=== PATIENT | female | born 1950 | race Caucasian/White ===

== ENCOUNTER 2018-06-21 09:15 | Observation (INO) ==
[2018-06-21] MEDS ORDERED: Morphine Inj 4 MG/ML Vial IV.PUSH ONE (10:00)
[2018-06-21 10:14] LABS: Baso % (Auto) 0.1 % (0.0-2.0); Eos % (Auto) 0.2 % (0.0-4.0); Hematocrit 37.6 % (35.0-46.0); Hemoglobin 13.2 gm/dL (11.6-15.3); Lymph # (Auto) 1.5 th/mm3 (1.0-4.8); Lymph % (Auto) 15.7 % (9.0-44.0); Mean Corpuscular HGB Conc 35.1 % (32.0-36.0); Mean Corpuscular Volume 91.3 fL (80.0-100.0); Mono # (Auto) 0.7 th/mm3 (0.0-0.9); Mono % (Auto) 7.6 % (0.0-8.0); Neut # (Auto) 7.6 th/mm3 (1.8-7.7); Neut % (Auto) 76.4 % (16.0-70.0); Platelet Count 305 th/mm3 (150-450); Red Blood Count 4.11 mil/mm3 (4.00-5.30); Red Cell Distribution Width 12.7 % (11.6-17.2); White Blood Count 9.8 th/mm3 (4.0-11.0)
--- NOTE | 2018-06-21 10:23 | XR ---
EXAM DATE: 06/21/2018 10:21 AM EST AGE/SEX: 67 years / Female INDICATIONS: Chest pain, short of breath. CLINICAL DATA: This is the patient's initial encounter. Patient reports that signs and symptoms have been present for 3 days and indicates a pain score of 8/10. MEDICAL/SURGICAL HISTORY: None. None. COMPARISON: No prior exams available for comparison. FINDINGS: The lungs are clear without infiltrate, nodule, or mass. There is no appreciable pleural effusion for technique. Heart and mediastinum are unremarkable. CONCLUSION: No acute cardiopulmonary disease. Electronically signed by: Víctor Mathias MD 06/21/2018 10:22 AM EST
[2018-06-21 10:28] LABS: Chloride 107 meq/L (98-107); Potassium 3.4 meq/L (3.5-5.1); Sodium 142 meq/L (136-145)
[2018-06-21 10:31] LABS: Activated Partial Thrombo Time 23.7 sec (23.4-31.7); Calcium 9.2 mg/dL (8.5-10.1); INR 0.9 Ratio; Prothrombin Time 9.3 sec (9.8-11.6)
[2018-06-21 10:32] LABS: Albumin 3.8 g/dL (3.4-5.0); Anion Gap 10 meq/L (5-15); Blood Urea Nitrogen 16 mg/dL (7-18); Carbon Dioxide 25.1 meq/L (21.0-32.0); Glucose,Random 97 mg/dL (74-106); Lipase 395 U/L (73-393)
[2018-06-21 10:35] LABS: Alanine Aminotransferase 23 U/L (10-53); Aspartate Aminotransferase 11 U/L (15-37); Glomerular Filtration Rate Greater Than 89 mL/min (>89)
[2018-06-21 10:36] LABS: Total Protein 7.3 g/dL (6.4-8.2)
[2018-06-21 10:38] LABS: Alkaline Phosphatase 85 U/L (45-117)
[2018-06-21 10:39] LABS: Creatine Kinase 53 U/L (26-192)
[2018-06-21] MEDS ORDERED: Famotidine PF Inj 20 MG/2 ML Vial IV.PUSH ONE (11:27)
[2018-06-21] MEDS ORDERED: Aluminum/Magnesium/Simethacone Susp 30 ML UDC PO ONE (11:27)
--- NOTE | 2018-06-21 11:28 | ED ---
HPI General Chief complaint: Chest Pain Stated complaint: high bp, indigestion x 3 days Time Seen by Provider: 06/21/18 09:33 Source: patient Mode of arrival: ambulatory Limitations: no limitations History of Present Illness HPI narrative: Patient is a 67-year-old female who comes in complaining of chest pain. She says that the pain started in her epigastric area 3 days ago and is been coming and going. She says it has moved up into her chest and feels like a stabbing pain. She says she has some pain rating up the left side of her neck. She also has pain that radiates to both shoulder blades. She denies nausea or vomiting. She denies fever chills. She denies cough or cold symptoms. She says she has never had symptoms like this before. She tried taking some Gas-X when it first started, but this did not help. He says that her father had a heart attack at 67, which makes her nervous. Severity is mild to moderate. Related Data Home Medications Medication Instructions Recorded Confirmed No Known Home Medications 06/21/18 06/21/18 Allergies Allergy/AdvReac Type Severity Reaction Status Date / Time diatrizoate meglumine Allergy Severe throat Verified 06/21/18 11:16 swelling, hives gadobenic acid Allergy Severe throat Verified 06/21/18 11:16 swelling, hives gadodiamide Allergy Severe throat Verified 06/21/18 11:16 swelling, hives gadoteridol Allergy Severe throat Verified 06/21/18 11:16 swelling, hives iodixanol Allergy Severe throat Verified 06/21/18 11:16 swelling, hives iohexol Allergy Severe throat Verified 06/21/18 11:16 swelling, hives penicillin G Allergy Severe hives, Verified 06/21/18 11:16 throat swells amoxicillin Allergy Intermediate hives Verified 06/21/18 11:16 Sulfa (Sulfonamide Allergy Unknown Hives Verified 06/21/18 11:16 Antibiotics) Review of Systems ROS: all other systems reviewed are negative Constitutional Denies chills and Denies fever(s) ENT Denies dizziness Cardiovascular Reports chest pain Respiratory Denies cough and Denies dyspnea Gastrointestinal Denies vomiting Musculoskeletal Denies myalgias and Denies arthralgias Integumentary/Breasts Denies sores and Denies wounds Neurologic Denies focal weakness and Denies numbness PMFSH Medical History Medical History History of anxiety (Acute) History of herniated intervertebral disc (Acute) History of kidney stones (Acute) Surgical History Surgical History History of tubal ligation (Acute) Social History Social History Substance History: No History of Abuse Smoking Status: Former smoker How Often Do You Have a Drink Containing Alcohol: Never Recent Travel in [facility] within the Last 8 Weeks: No Recent Out of Country Travel within the Last 8 Weeks: No Immunization History Tetanus Immunization: >5 Years Exam Narrative Exam Narrative: GENERAL: Awake and alert, in no acute distress. SKIN: Focused skin assessment warm/dry. No wounds or signs of infection. HEAD: Atraumatic. Normocephalic. EYES: Pupils equal and round. No scleral icterus. ENT: Mucous membranes pink and moist. NECK: Trachea midline. No JVD. CARDIOVASCULAR: Regular rate and rhythm. No murmur appreciated. RESPIRATORY: No accessory muscle use. Clear to auscultation. Breath sounds equal bilaterally. GASTROINTESTINAL: Abdomen soft, nondistended. Mild tenderness to palpation of the epigastric area. No rebound or guarding. MUSCULOSKELETAL: No obvious deformities. No clubbing. No cyanosis. No edema. NEUROLOGICAL: Awake and alert. No obvious cranial nerve deficits. Motor grossly within normal limits. Normal speech. PSYCHIATRIC: Appropriate mood and affect; insight and judgment normal. Course Initial Documented Vital Signs Temperature 98.6 F 06/21/18 09:30 Pulse Rate 77 06/21/18 09:30 Respiratory Rate 16 06/21/18 09:30 Blood Pressure 150/76 H 06/21/18 09:30 Pulse Oximetry 97 06/21/18 09:30 Last Documented Vital Signs Temperature 98.6 F 06/21/18 09:30 Pulse Rate 63 06/21/18 10:20 Respiratory Rate 16 06/21/18 10:20 Blood Pressure 137/69 06/21/18 10:20 Pulse Oximetry 97 06/21/18 10:20 Medical Decision Making MDM Narrative Medical decision making narrative: Patient is a 67-year-old female who comes in complaining of chest pain. Exam shows mild tenderness to palpation of the epigastric area. IV established, labs sent. Labs show no acute abnormalities, other than slight elevation of lipase to 395, troponin is negative. Patient given pain medicine. Given GI cocktail. Based on history and risk factors, I believe patient would benefit from a ACS rule out. She will be placed in observation for further management. Medical Screen Exam Complete: Yes Emergency Medical Condition: Yes Differential Diagnosis Differential Diagnosis: ACS versus pancreatitis versus cholecystitis versus NSTEMI versus STEMI Medical Records Medical records reviewed: Yes I reviewed the patient's medical records. Lab Data Lab results reviewed: Yes I reviewed the patient's lab results. Result diagrams: 06/21/18 10:02 06/21/18 10:02 Lab Results 06/21/18 06/21/18 06/21/18 Range/Units 10:02 10:02 10:02 CBC w Diff Auto diff final WBC 9.8 (4.0-11.0) th/mm3 RBC 4.11 (4.00-5.30) mil/mm3 Hgb 13.2 (11.6-15.3) gm/dL Hct 37.6 (35.0-46.0) % MCV 91.3 (80.0-100.0) fL MCH 32.0 (27.0-34.0) pg MCHC 35.1 (32.0-36.0) % RDW 12.7 (11.6-17.2) % Plt Count 305 (150-450) th/mm3 MPV 10.0 (7.0-11.0) fL Neut % (Auto) 76.4 H (16.0-70.0) % Lymph % (Auto) 15.7 (9.0-44.0) % [place] % (Auto) 7.6 (0.0-8.0) % Eos % (Auto) 0.2 (0.0-4.0) % Baso % (Auto) 0.1 (0.0-2.0) % Neut # (Auto) 7.6 (1.8-7.7) th/mm3 Lymph # (Auto) 1.5 (1.0-4.8) th/mm3 [place] # (Auto) 0.7 (0.0-0.9) th/mm3 Eos # (Auto) 0.0 (0.0-0.4) th/mm3 Baso # (Auto) 0.0 (0.0-0.2) th/mm3 WBC Differential . Differential Comment . PT 9.3 L (9.8-11.6) sec INR 0.9 Ratio APTT 23.7 (23.4-31.7) sec Sodium 142 (136-145) meq/L Potassium 3.4 L (3.5-5.1) meq/L Chloride 107 (98-107) meq/L Carbon Dioxide 25.1 (21.0-32.0) meq/L Anion Gap 10 (5-15) meq/L BUN 16 (7-18) mg/dL Creatinine 0.61 (0.50-1.00) mg/dL Estimated GFR Greater than 89 (>89) mL/min Random Glucose 97 (74-106) mg/dL Calcium 9.2 (8.5-10.1) mg/dL Total Bilirubin 0.5 (0.2-1.0) mg/dL Direct Bilirubin 0.1 (0.0-0.2) mg/dL Indirect Bilirubin 0.4 (0.0-0.8) mg/dL AST 11 L (15-37) U/L ALT 23 (10-53) U/L Alkaline Phosphatase 85 (45-117) U/L Total Creatine Kinase 53 (26-192) U/L Troponin I Less than 0.02 L (0.02-0.05) ng/mL Total Protein 7.3 (6.4-8.2) g/dL Albumin 3.8 (3.4-5.0) g/dL Lipase 395 H (73-393) U/L Imaging Data Radiologist's impression: Chest X-Ray 06/21/18 10:00 CONCLUSION: No acute cardiopulmonary disease. ECG Data EKG Prior to Arrival: No Attestation: I personally reviewed and interpreted this ECG as follows: Interpretation: ECG shows normal sinus rhythm at a rate of 77, incomplete right bundle branch block, no ST elevation or depression Discharge Plan Discharge Disposition Patient Disposition: 30 Still Patient Discharge Condition Condition: Stable Discharge Details Diagnosis: Chest pain Physicians Team ED Provider: Louise Castillo Primary Care Provider: Koffi Leblanc Attending Provider: Elizabeth Sevilla Status ED Status: Admitted Observation Patient
--- NOTE | 2018-06-21 11:40 | P.HP ---
History of Present Illness Primary Care Physician: Koffi Leblanc MD Chief Complaint: Chest pain History of Present Illness: This is a pleasant 67-year-old female patient with no known medical history presented to the ED with complaints of chest pain. Patient states that she first noticed the chest discomfort roughly 3 days ago, she states that she felt like it was possibly gas, she took a Gas-X which helped relieve the pain some. She states that the pain worsens when she eats. Over the course of the past 2 days the pain has just been worsening, initially started in her mid epigastric area, was sharp in nature and has extended up her neck and left side of her chest. Pain is rated a 6 out of 10 at its worst on pain scale and is constant in nature, waxing and waning severity. Denies any associated vomiting, sweating or shortness of breath but does admit to some nausea with the pain. Has had a previous cardiac treadmill stress test roughly 10 years ago which was reportedly negative. She does not take any prescribed medications at home. She does admit to a smoking history, states she smoked roughly 1 pack/day for 15 years, has quit for many years now. Father has a significant history of [place] x2 with his first heart attack being at the age of 63. She does have hyperlipidemia but unable to tolerate statins, she has had some improvement in her numbers with lifestyle changes and supplements, PCP is following. - Diagnosis (1) Chest pain Review of Systems All other systems reviewed negative except as stated in HPI PMFSH - History History Provided By: Patient - Medical History Medical History: Medical History (Last Reviewed 06/21/18 @ 11:38 by Louise Montana) History of anxiety History of herniated intervertebral disc History of kidney stones - Surgical History Surgical History: Surgical History (Last Reviewed 06/21/18 @ 11:38 by Louise Montana) History of tubal ligation - Family History Family History: Family History (Last Updated 06/21/18 @ 12:02 by Louise Montana) Other Cardiovascular disease - Social History I have reviewed the patient's Social History: Yes - Tobacco History Smoking Status: Former smoker - Alcohol History How Often Do You Have a Drink Containing Alcohol: Never - Substance Use History Substance History: No History of Abuse - Travel History Recent Travel in the [place] Within the Last 8 Weeks: No Recent Travel Out of the Country Within the Last 8 Weeks: No - Immunization History Tetanus Immunization: >5 Years Medications and Allergies Active Medications: Active Medications Sodium Chloride (Ns Flush) 2 ml IV.FLUSH UNSCH PRN PRN Reason: FLUSH AFTER USING IV ACCESS Allergies Allergy/AdvReac Type Severity Reaction Status Date / Time diatrizoate meglumine Allergy Severe throat Verified 06/21/18 11:16 swelling, hives gadobenic acid Allergy Severe throat Verified 06/21/18 11:16 swelling, hives gadodiamide Allergy Severe throat Verified 06/21/18 11:16 swelling, hives gadoteridol Allergy Severe throat Verified 06/21/18 11:16 swelling, hives iodixanol Allergy Severe throat Verified 06/21/18 11:16 swelling, hives iohexol Allergy Severe throat Verified 06/21/18 11:16 swelling, hives penicillin G Allergy Severe hives, Verified 06/21/18 11:16 throat swells amoxicillin Allergy Intermediate hives Verified 06/21/18 11:16 Sulfa (Sulfonamide Allergy Unknown Hives Verified 06/21/18 11:16 Antibiotics) Home Medications Medication Instructions Recorded Confirmed Type No Known Home Medications 06/21/18 06/21/18 History Exam Vital signs: Vital Signs 06/21/18 09:30 06/21/18 09:46 06/21/18 10:00 Temperature 98.6 F Pulse Rate 77 63 Respiratory Rate 16 Blood Pressure 150/76 H 142/75 H Pulse Oximetry 97 97 06/21/18 10:20 Temperature Pulse Rate 63 Respiratory Rate 16 Blood Pressure 137/69 Pulse Oximetry 97 Intake & Output 06/20/18 06/21/18 06/21/18 18:59 06:59 18:59 Weight 63 kg Narrative: GENERAL: Well-developed, well-nourished patient in [facility]. SKIN: Warm and dry. No rash. HEAD: Normocephalic. Atraumatic. EYES: Pupils equal and round. No scleral icterus. No injection or drainage. ENT: No nasal bleeding or discharge. Mucous membranes pink and moist. NECK: Supple. Trachea midline. CARDIOVASCULAR: Regular rate and rhythm. S1, S2 noted. No murmur appreciated. No chest pain to palpation. RESPIRATORY: No accessory muscle use. Clear to auscultation. Breath sounds equal bilaterally. GASTROINTESTINAL: Abdomen soft, non-tender, nondistended. Normoactive bowel sounds x4. MUSCULOSKELETAL: No obvious deformities. Extremities without clubbing, cyanosis , or edema. NEUROLOGICAL: Awake and alert. No obvious cranial nerve deficits. Motor grossly within normal limits. 5/5 muscle strength in bilateral upper and lower extremities. Normal speech. PSYCHIATRIC: Appropriate mood and affect; insight and judgment normal. Results - Labs CBC & Chem 7: 06/21/18 10:02 06/21/18 10:02 Labs: Laboratory Results - last 24 hr 06/21/18 06/21/18 06/21/18 10:02 10:02 10:02 CBC w Diff Auto diff final WBC 9.8 RBC 4.11 Hgb 13.2 Hct 37.6 MCV 91.3 MCH 32.0 MCHC 35.1 RDW 12.7 Plt Count 305 MPV 10.0 Neut % (Auto) 76.4 H Lymph % (Auto) 15.7 [place] % (Auto) 7.6 Eos % (Auto) 0.2 Baso % (Auto) 0.1 Neut # (Auto) 7.6 Lymph # (Auto) 1.5 [place] # (Auto) 0.7 Eos # (Auto) 0.0 Baso # (Auto) 0.0 WBC Differential . Differential Comment . PT 9.3 L INR 0.9 APTT 23.7 Sodium 142 Potassium 3.4 L Chloride 107 Carbon Dioxide 25.1 Anion Gap 10 BUN 16 Creatinine 0.61 Estimated GFR Greater than 89 Random Glucose 97 Calcium 9.2 Total Bilirubin 0.5 Direct Bilirubin 0.1 Indirect Bilirubin 0.4 AST 11 L ALT 23 Alkaline Phosphatase 85 Total Creatine Kinase 53 Troponin I Less than 0.02 L Total Protein 7.3 Albumin 3.8 Lipase 395 H - Imaging Impressions Chest X-Ray 06/21/18 10:00 CONCLUSION: No acute cardiopulmonary disease. Caprini VTE Risk Assessment Caprini VTE Risk Assessment: Moderate/High Risk (score >= 2) Caprini Risk Assessment Model: Point Value = 1 Point Value = 2 Point Value = 3 Point Value = 5 Age 41-60 Minor surgery BMI > 25 kg/m2 Swollen legs Varicose veins or History of unexplained or recurrent spontaneous Oral contraceptives or hormone replacement Sepsis (< 1 month) Serious lung disease, including pneumonia (< 1 month) Abnormal pulmonary function Acute myocardial infarction Congestive heart failure (< 1 month) History of inflammatory bowel disease Medical patient at bed rest Age 61-74 Arthroscopic surgery Major open surgery (> 45 min) Laparoscopic surgery (> 45 min) Malignancy Confined to bed (> 72 hours) Immobilizing plaster cast Central venous access Age >= 75 History of VTE Family history of VTE Factor V Leiden Prothrombin [id number] Lupus anticoagulant Anticardiolipin antibodies Elevated serum homocysteine Heparin-induced thrombocytopenia Other congenital or acquired thrombophilia Stroke (< 1 month) Elective arthroplasty Hip, pelvis, or leg fracture Acute spinal cord injury (< 1 month) Prophylaxis Regimen: Total Risk Factor Score Risk Level Prophylaxis Regimen 0-1 Low Early ambulation 2 Moderate Order ONE of the following: *Sequential Compression Device (SCD) *Heparin 5000 units SQ BID 3-4 Higher Order ONE of the following medications: *Heparin 5000 units SQ TID *Enoxaparin/Lovenox 40 mg SQ daily (WT < 150 kg, CrCl > 30 mL/min) *Enoxaparin/Lovenox 30 mg SQ daily (WT < 150 kg, CrCl > 10-29 mL/min) *Enoxaparin/Lovenox 30 mg SQ BID (WT < 150 kg, CrCl > 30 mL/min) AND/OR *Sequential Compression Device (SCD) 5 or more Highest Order ONE of the following medications: *Heparin 5000 units SQ TID (Preferred with Epidurals) *Enoxaparin/Lovenox 40 mg SQ daily (WT < 150 kg, CrCl > 30 mL/min) *Enoxaparin/Lovenox 30 mg SQ daily (WT < 150 kg, CrCl > 10-29 mL/min) *Enoxaparin/Lovenox 30 mg SQ BID (WT < 150 kg, CrCl > 30 mL/min) AND *Sequential Compression Device (SCD) Assessment and Plan - Assessment (1) Chest pain Code(s): R07.9 - Chest pain, unspecified Status: Acute - Plan This is a 67-year-old female patient with: Chest pain, atypical -Patient states the pain started 3 days ago. -She has been admitted to the chest pain center for observation. -Serial EKGs and serial troponins have been ordered for ruling out ACS purposes. Initial troponin flat. Continue to monitor trends. -EKG reviewed showing controlled rate, no ST changes with RBBB. -Continue cardiac telemetry, monitor for any arrhythmias. -Chest x-ray reviewed showing no acute cardiopulmonary findings. -CBC and BMP reviewed, essentially unremarkable. -Morphine IV available per pain scale. Aspirin given in ED. -If ACS ruled out with serial EKGs and serial troponins, patient will undergo a cardiac stress test to further rule out any ischemia. -Patient is stable at this time and agreeable to the plan. -Further hospitalization and treatment plan will depend on stress test results. Possible GERD -Started on Protonix. Continue. -Was given Maalox and Pepcid in ED. Assess response. DVT Prophylaxis: SCDs
[2018-06-21 14:07] LABS: Creatine Kinase 45 U/L (26-192)
[2018-06-21] MEDS: Morphine Sulfate Inj 2 MG/ML Vial IV.PUSH PRN (16:39)
[2018-06-21 16:59] LABS: Creatine Kinase 42 U/L (26-192)
[2018-06-21] MEDS: Acetaminophen 500 MG Tablet PO PRN (22:07)
[2018-06-22] MEDS: Acetaminophen 500 MG Tablet PO PRN (05:11)
[2018-06-22 05:45] VITALS: PULSE 58
[2018-06-22] MEDS: Morphine Sulfate Inj 2 MG/ML Vial IV.PUSH PRN (06:06)
--- NOTE | 2018-06-22 07:53 | P.PNIM ---
Subjective Interval history: 67-year-old female who is seen and examined today for follow-up on epigastric/ chest discomfort. Patient states that she is still been experiencing the epigastric discomfort with radiation into the back. Patient has been ruled out for acute coronary event. Anticipate stress testing today. This all discussed with the patient. Vital signs are stable. Patient remains afebrile. Physical Exam Vital signs: Vital Signs 06/21/18 09:30 06/21/18 09:46 06/21/18 10:00 Temperature 98.6 F Pulse Rate 77 63 Respiratory Rate 16 Blood Pressure 150/76 H 142/75 H Pulse Oximetry 97 97 06/21/18 10:20 06/21/18 11:42 06/21/18 12:29 Temperature 97.6 F Pulse Rate 63 61 61 Respiratory Rate 16 16 20 Blood Pressure 137/69 125/75 133/67 Pulse Oximetry 97 98 95 06/21/18 12:48 06/21/18 16:00 06/21/18 16:06 Temperature 97.0 F L Pulse Rate 57 L 58 L 64 Respiratory Rate 20 Blood Pressure 118/64 Pulse Oximetry 96 06/21/18 20:00 06/22/18 00:00 06/22/18 04:00 Temperature 96.9 F L 97.3 F L 97.4 F L Pulse Rate 54 L 60 58 L Respiratory Rate 20 20 20 Blood Pressure 119/67 120/66 120/74 Pulse Oximetry 96 98 96 Intake & Output 06/21/18 06/22/18 06/22/18 18:59 06:59 18:59 Intake Total 480 / 480 Output Total 1100 / 1100 Balance -620 / -620 Weight 63 kg Intake: Oral 480 / 480 Output: Urine 1100 / 1100 Other: Date of Last Bowel Movement 06/21/18 06/21/18 Weight On Admission 63 kg Narrative: GENERAL: Well-developed, well-nourished, in no acute distress. alert and orientated HEENT: Head is normocephalic without any lesions or masses noted. Facial features are symmetric. Eyes: Extraocular muscles are intact. Conjunctivae were clear. NECK: Supple without any masses. Trachea midline no deviation. No JVD, CARDIAC: Regular rhythm, regular rate. S1/S2 are heard. No murmurs gallops or rubs. LUNGS: Clear to auscultation bilaterally. No wheeze, rhonchi or rales. No use of accessory muscles on inspiration or expiration. ABDOMEN: Soft, nontender. Nondistended. Bowel sounds heard in all 4 quadrants. No organomegaly or masses. Negative rebound, negative guarding EXTREMITIES: No edema, pulses are equal bilaterally. No cyanosis or clubbing NEUROLOGY: Mood and affect appear appropriate. Cranial nerves II through XII grossly intact. Moving all extremities, speech is clear Results - Labs CBC & Chem 7: 06/21/18 10:02 06/21/18 10:02 Laboratory Results - last 24 hr 06/21/18 06/21/18 06/21/18 10:02 10:02 10:02 CBC w Diff Auto diff final WBC 9.8 RBC 4.11 Hgb 13.2 Hct 37.6 MCV 91.3 MCH 32.0 MCHC 35.1 RDW 12.7 Plt Count 305 MPV 10.0 Neut % (Auto) 76.4 H Lymph % (Auto) 15.7 [place] % (Auto) 7.6 Eos % (Auto) 0.2 Baso % (Auto) 0.1 Neut # (Auto) 7.6 Lymph # (Auto) 1.5 [place] # (Auto) 0.7 Eos # (Auto) 0.0 Baso # (Auto) 0.0 WBC Differential . Differential Comment . PT 9.3 L INR 0.9 APTT 23.7 Sodium 142 Potassium 3.4 L Chloride 107 Carbon Dioxide 25.1 Anion Gap 10 BUN 16 Creatinine 0.61 Estimated GFR Greater than 89 Random Glucose 97 Calcium 9.2 Total Bilirubin 0.5 Direct Bilirubin 0.1 Indirect Bilirubin 0.4 AST 11 L ALT 23 Alkaline Phosphatase 85 Total Creatine Kinase 53 Troponin I Less than 0.02 L Total Protein 7.3 Albumin 3.8 Lipase 395 H 06/21/18 06/21/18 13:15 16:15 CBC w Diff WBC RBC Hgb Hct MCV MCH MCHC RDW Plt Count MPV Neut % (Auto) Lymph % (Auto) [place] % (Auto) Eos % (Auto) Baso % (Auto) Neut # (Auto) Lymph # (Auto) [place] # (Auto) Eos # (Auto) Baso # (Auto) WBC Differential Differential Comment PT INR APTT Sodium Potassium Chloride Carbon Dioxide Anion Gap BUN Creatinine Estimated GFR Random Glucose Calcium Total Bilirubin Direct Bilirubin Indirect Bilirubin AST ALT Alkaline Phosphatase Total Creatine Kinase 45 42 Troponin I Less than 0.02 L Less than 0.02 L Total Protein Albumin Lipase - Imaging Impressions Chest X-Ray 06/21/18 10:00 CONCLUSION: No acute cardiopulmonary disease. Assessment and Plan - Assessment (1) Chest pain Code(s): R07.9 - Chest pain, unspecified Status: Acute - Plan Chest pain, atypical -Patient with increased risk factors to include age, family history of heart disease, history of tobacco use -Patient has been ruled out for acute coronary event with serial cardiac enzymes that are negative -Serial EKGs were reviewed by myself and indicated right bundle branch block without any changes -Myocardial perfusion study was performed and indicated normal examination, no signs of any perfusion abnormalities, low risk -Continue aspirin, nitroglycerin as needed, morphine as needed Elevated lipase -Patient does not have any objective findings of acute pancreatitis, lipase level is very minimally elevated -Lipase level returned to normal Possible GERD -Continue Protonix -Continue Maalox as needed -Discussed with the patient that 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 DVT Prophylaxis: -Sequential compression devices Discharge Planning: Discharge home in stable condition Activity: Ad david. Diet: Healthy heart diet Medication per medication reconciliation Follow-up with primary medical doctor in 1 week
[2018-06-22] MEDS ORDERED: Regadenoson Inj 0.4 MG/5 ML Syringe IV.PUSH ONE (10:10)
[2018-06-22 10:16] VITALS: BP 114/68; RESP 16; TEMP 97.1; O2SAT 94
--- NOTE | 2018-06-22 11:17 | NM ---
EXAM DATE: 06/22/2018 11:11 AM EST AGE/SEX: 67 years / Female INDICATIONS:Angina. . Chest pain. CLINICAL DATA: This is the patient's initial encounter. Patient reports that signs and symptoms have been present for 1 day and indicates a pain score of 2/10. MEDICAL/SURGICAL HISTORY: None. Tubal ligation. COMPARISON: No prior exams available for comparison. DOSE: 8.3 mCi Tc 99m Myoview at rest 26.4 mCi [id number] at stress 0.4 mg Lexiscan STRESS SYMPTOMS: Nausea. EJECTION FRACTION: >70 % TECHNIQUE: The patient underwent pharmacologic stress with infusion of prescribed dose. Continuous ECG tracing was monitored during stress. Gated SPECT imaging was performed after stress and conventi onal SPECT imaging was performed at rest. The examination was performed on a SPECT/CT scanner, both attenuation and non-corrected datasets were reviewed. FINDINGS: Distribution: The maximum perfused segment at stress is in the anterior wall. Perfusion Study: The pattern of perfusion at stress is within normal limits. Gated Study: There are intact wall motion and wall thickening without hypokinetic or dyskinetic segm ents. The ejection fraction is calculated at >70%. RISK CATEGORY: Low (<1% Annual Motality Rate) CONCLUSION: 1. Negative examination. 2. No evidence of fixed or reversible perfusion abnormalities. 3. Normal wall motion and ejection fraction. Electronically signed by: Wiliam Norman MD 06/22/2018 11:16 AM EST
--- NOTE | 2018-06-22 14:58 | TR ---
Date Performed: 06/22/2018 Time Performed: 10:28:16 DOCTOR: Lucretia Mendiola DRUG LIST: CLINICAL HISTORY: REASON FOR TEST: REASON FOR ENDING: OBSERVATION: CONCLUSION: Lexiscan stress test was performed under standard four minute protocol. Radionuclid e was injected one minute prior to ending the test. No electrocardiographic abormalities were present to suggest ischemia. Nuclear imaging and interpretation are pending. COMMENTS: Lexiscan stress test was performed under standard four minute protocol. Radionuclide was injected one minute prior to ending the test. No electrocardiographic abormalities were present t o suggest ischemia. Nuclear imaging and interpretation are pending.
--- NOTE | 2018-06-22 16:22 | ECG ---
Date Performed: 06/21/2018 Time Performed: 13:17:07 PTAGE: 67 years EKG: SINUS BRADYCARDIA INCOMPLETE RIGHT BUNDLE BRANCH BLOCK Since previous tracing, no significa nt change noted BORDERLINE ECG PREVIOUS TRACING : 06/21/2018 09.21 DOCTOR: Lavelle Mcmillan Interpretating Date/Time 06/22/2018 16:21:25
--- NOTE | 2018-06-22 16:22 | ECG ---
Date Performed: 06/21/2018 Time Performed: 09:21:05 PTAGE: 67 years EKG: Sinus rhythm POSSIBLE LEFT ATRIAL ENLARGEMENT BORDERLINE LEFT AXIS DEVIATION INCOMPLETE RIGHT BUNDLE BRANCH BLOCK BORDERLINE ECG NO PREVIOUS TRACING DOCTOR: Lavelle Mcmillan Interpretating Date/Time 06/22/2018 16:21:15
--- NOTE | 2018-06-22 16:22 | ECG ---
Date Performed: 06/21/2018 Time Performed: 16:14:41 PTAGE: 67 years EKG: SINUS BRADYCARDIA Since previous tracing, no significant change noted BORDERLINE ECG PREVIOUS TRACING : 06/21/2018 13.17 DOCTOR: Lavelle Mcmillan Interpretating Date/Time 06/22/2018 16:21:36
== END 2018-06-22 12:42 | disposition home or self-care (01) ==
LOC: PHEDA 09:15 → PHED 09:15 → PH3 12:05
PROVIDERS: ADMIT Hospitalist; ATTEND Hospitalist